=== PATIENT | female | born 1985 | race Caucasian/White ===

== ENCOUNTER 2018-11-17 18:05 | Emergency (ER) | payer MEDICAID, OTHER ==
[~2018-11-17] VITALS: Ht 162.6 cm; Wt 53.1 kg
--- OUTSIDE RECORDS SUMMARY | 2018-11-17 18:11 | XMS REPORT ---
Author Author BRIAN BRIONES Organization [facility] Address [address] [place] [address] Care Team Providers Care Drapery Supervisor Name Role Phone NEYBRIAN GODFREY Unavailable PROBLEMS Unknown Problems ALLERGIES Substance Reaction Event Type Date Status Tramadol HCl rash Drug Allergy Aug, Active Aspirin anaphylaxis Drug Allergy Aug, Active ENCOUNTERS Encounter Location Date Diagnosis [address] [id number] [id number] Aug, Dental caries K02.[address] [id number] [id number] Aug, Dental examination Z01.20 [facility] [id number] [place] [id number] Aug, Abdominal pain, unspecified abdominal location R10.9 [place] [id number] [place] [id number] Mar, Tooth decayed K02.9 and Tooth pain K08.89 IMMUNIZATIONS No Known Immunizations SOCIAL HISTORY Never Assessed REASON FOR VISIT Pain (acute) stomach CRones RN PLAN OF CARE Activity Details Follow Up prn if not improving in clinic or with PCP Reason: VITAL SIGNS Height 64.5 in 2017-08-11 Weight 122.6 lbs 2017-08-11 Temperature 97.8 degrees Fahrenheit 2017-08-11 Heart Rate 103 bpm 2017-08-11 Respiratory Rate 18 2017-08-11 BMI 20.72 kg/m2 2017-08-11 Blood pressure systolic 110 mmHg 2017-08-11 Blood pressure diastolic 58 mmHg 2017-08-11 MEDICATIONS No Known Medications RESULTS Name Result Date Reference Range UA LONG DIP (IN HOUSE) 2017-08-11 Lot # [id number] Exp date 07/11/18 Clarity clear Color yellow Odor no GLU neg KEITH neg KET neg SG 1.005 BLO neg pH 5.5 Protein neg URO 0.2 NIT neg TANIA 1+ Lot # Exp date PROCEDURES Procedure Date Ordered Result Body Site URINALYSIS, AUTO, W/O SCOPE Aug 11, 2017 INSTRUCTIONS MEDICATIONS ADMINISTERED No Known Medications MEDICAL (GENERAL) HISTORY Type Description Date Medical History bipolar disorder Medical History schizophrenia Medical History hepatitis C Surgical History tubal ligation Surgical History section x 3 Surgical History left eye muscles and retina reattached s/p defect Surgical History lasik correction right eye Hospitalization History childbirth
--- OUTSIDE RECORDS SUMMARY | 2018-11-17 18:11 | XMS REPORT ---
Author Author HOLLIE ORTIZ Organization [facility] Address [address] [place] [address] Care Team Providers Care Extruder Operator Helper Name Role Phone HOLLIE ORTIZ Unavailable PROBLEMS Unknown Problems ALLERGIES Substance Reaction Event Type Date Status Tramadol HCl rash Drug Allergy Aug, Active Aspirin anaphylaxis Drug Allergy Aug, Active ENCOUNTERS Encounter Location Date Diagnosis [facility] [address] [facility] [id number] [phone] Aug, Dental caries K02.9 [place] [id number] [facility] [id number] [id number] Aug, Dental examination Z01.20 [facility] [address] [id number] [phone] Aug, Abdominal pain, unspecified abdominal location R10.9 [facility] [address] [id number] [id number] Mar, Tooth decayed K02.9 and Tooth pain K08.89 IMMUNIZATIONS No Known Immunizations SOCIAL HISTORY Never Assessed REASON FOR VISIT te PLAN OF CARE Activity Details Follow Up prn Reason:GOPAL w/ hygiene VITAL SIGNS Height 64.5 in 2017-08-28 Blood pressure systolic 114 mmHg 2017-08-28 Blood pressure diastolic 59 mmHg 2017-08-28 MEDICATIONS Medication Instructions Dosage Frequency Start Date End Date Duration Status Mobic Active Flexeril Active RESULTS No Results PROCEDURES Procedure Date Ordered Result Body Site EXTRAC ERUPTED TOOTH/EXPOSED ROOT Aug 28, 2017 INSTRUCTIONS MEDICATIONS ADMINISTERED No Known Medications MEDICAL (GENERAL) HISTORY Type Description Date Medical History bipolar disorder Medical History schizophrenia Medical History hepatitis C Surgical History tubal ligation Surgical History section x 3 Surgical History left eye muscles and retina reattached s/p defect Surgical History lasik correction right eye Hospitalization History childbirth
--- OUTSIDE RECORDS SUMMARY | 2018-11-17 18:11 | XMS REPORT ---
Author Author HOLLIE ORTIZ Organization [facility] Address [address] [place] [address] Care Team Providers Care Diabetes Trainer Name Role Phone HOLLIE ORTIZ Unavailable PROBLEMS Unknown Problems ALLERGIES Substance Reaction Event Type Date Status Tramadol HCl rash Drug Allergy Aug, Active Aspirin anaphylaxis Drug Allergy Aug, Active ENCOUNTERS Encounter Location Date Diagnosis [facility] [address] [facility] [id number] [phone] Aug, Dental caries K02.[id number] [place] [id number] Aug, Dental examination Z01.20 [facility] [id number] [phone] Aug, Abdominal pain, unspecified abdominal location R10.9 [facility] [id number] [place] [id number] Mar, Tooth decayed K02.9 and Tooth pain K08.89 IMMUNIZATIONS No Known Immunizations SOCIAL HISTORY Never Assessed REASON FOR VISIT HERMILO PLAN OF CARE Activity Details Follow Up at least 1 Week Reason:TE #32 VITAL SIGNS Height 64.5 in 2017-08-21 Blood pressure systolic 97 mmHg 2017-08-21 Blood pressure diastolic 60 mmHg 2017-08-21 MEDICATIONS Medication Instructions Dosage Frequency Start Date End Date Duration Status Clindamycin HCl 150 MG Orally with Probiotic every 8 hrs 2 capsules 8h Aug, Aug, 5 day(s) Active Flexeril Active Mobic Active RESULTS No Results PROCEDURES Procedure Date Ordered Result Body Site LTD ORAL EVALUATION - PROBLEM FOCUS Aug 21, 2017 PANORAMIC FILM SEE ALSO CODE [id number] Aug 21, 2017 INSTRUCTIONS MEDICATIONS ADMINISTERED No Known Medications MEDICAL (GENERAL) HISTORY Type Description Date Medical History bipolar disorder Medical History schizophrenia Medical History hepatitis C Surgical History tubal ligation Surgical History section x 3 Surgical History left eye muscles and retina reattached s/p defect Surgical History lasik correction right eye Hospitalization History childbirth
[2018-11-17 18:33] LABS: BILIRUBIN,URINE NEGATIVE (NEGATIVE); CLARITY,URINE VERY CLOUDY; COLOR,URINE YELLOW; GLUCOSE, URINE (UA) NEGATIVE (NEGATIVE); KETONES,URINE NEGATIVE (NEGATIVE); LEUKOCYTE ESTERASE ,URINE 3+ (NEGATIVE); NITRITE,URINE NEGATIVE (NEGATIVE); PH,URINE 6 (5-9); PROTEIN,URINE 1+ (NEGATIVE); UROBILINOGEN,URINE NORMAL (NORMAL)
[2018-11-17 18:34] LABS: BASOPHILS # (AUTO) 0.1 10^3/uL (0.0-0.1); BASOPHILS % (AUTO) 0 % (0-10); EOSINOPHILS % (AUTO) 0 % (0-10); HEMATOCRIT 42 % (35-52); HEMOGLOBIN 14.4 G/DL (11.5-16.0); LYMPHOCYTES # (AUTO) 3.5 X 10^3 (1.0-4.0); LYMPHOCYTES % (AUTO) 26 % (12-44); MEAN CORPUSCULAR HEMOGLOBIN 33 PG (25-34); MEAN CORPUSCULAR HGB CONC 34 G/DL (32-36); MEAN CORPUSCULAR VOLUME 95 FL (80-99); MEAN PLATELET VOLUME 10.5 FL (7.4-10.4); MONOCYTES % (AUTO) 8 % (0-12); NEUTROPHILS # (AUTO) 8.9 X 10^3 (1.8-7.8); NEUTROPHILS % (AUTO) 66 % (42-75); PLATELET COUNT 218 10^3/uL (130-400); RED CELL DISTRIBUTION WIDTH 13.2 % (10.0-14.5); WHITE BLOOD COUNT 13.5 10^3/uL (4.3-11.0)
[2018-11-17 18:40] LABS: BACTERIA,URINE MODERATE /HPF
--- NOTE | 2018-11-17 18:44 | ED Abdominal Pain ---
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 HX OF KIDNEY STONES. Sepsis Screen: No Definite Risk Source of Information: Patient Exam Limitations: No Limitations History of Present Illness Date Seen by Provider: Nov 17, 2018 Time Seen by Provider: 18:30 Allergies and Home Medications Allergies Coded Allergies: aspirin (Verified Allergy, Unknown, 11/17/18) Past Cgjkjju-Jqnyef-Dlmynr Hx Patient Social History Alcohol Use: Occasionally Uses Recreational Drug Use: Yes Drug of Choice: MARIJUANA Smoking Status: Current Everyday Smoker Type Used: Cigarettes Recent Foreign Travel: No Contact w/Someone Who Travel: No Recent Infectious Disease Expo: No Recent Hopitalizations: No Seasonal Allergies Seasonal Allergies: Yes Past Medical History Section, Eye Surgery Respiratory: No Cardiac: No Neurological: No Last Menstrual Period: Nov 15, 2018 Genitourinary: No Gastrointestinal: No Musculoskeletal: No Endocrine: No HEENT: Yes Cancer: No Psychosocial: Yes Anxiety Integumentary: No Physical Exam Vital Signs Vital Signs - First Documented 11/17/18 18:12 Temp 97.8 Pulse 67 Resp 16 B/P (MAP) 133/79 (97) Pulse Ox 97 O2 Delivery Room Air Capillary Refill : Less Than 3 Seconds Height/Weight/BMI Height: 5'4.00" Weight: 117lbs. oz. 53.168434hf; BMI Method:Stated Progress/Results/Core Measures Results/Orders Lab Results Laboratory Tests Test 11/17/18 18:23 11/17/18 18:28 Range/Units White Blood Count 13.5 H 4.3-11.0 10^3/uL Red Blood Count 4.42 4.35-5.85 10^6/uL Hemoglobin 14.4 11.5-16.0 G/DL Hematocrit 42 35-52 % Mean Corpuscular Volume 95 80-99 FL Mean Corpuscular Hemoglobin 33 25-34 PG Mean Corpuscular Hemoglobin Concent 34 32-36 G/DL Red Cell Distribution Width 13.2 10.0-14.5 % Platelet Count 218 130-400 10^3/uL Mean Platelet Volume 10.5 H 7.4-10.4 FL Neutrophils (%) (Auto) 66 42-75 % Lymphocytes (%) (Auto) 26 12-44 % Monocytes (%) (Auto) 8 0-12 % Eosinophils (%) (Auto) 0 0-10 % Basophils (%) (Auto) 0 0-10 % Neutrophils # (Auto) 8.9 H 1.8-7.8 X 10^3 Lymphocytes # (Auto) 3.5 1.0-4.0 X 10^3 Monocytes # (Auto) 1.0 0.0-1.0 X 10^3 Eosinophils # (Auto) 0.0 0.0-0.3 10^3/uL Basophils # (Auto) 0.1 0.0-0.1 10^3/uL Sodium Level 141 135-145 MMOL/L Potassium Level 3.4 L 3.6-5.0 MMOL/L Chloride Level 107 98-107 MMOL/L Carbon Dioxide Level 24 21-32 MMOL/L Anion Gap 10 5-14 MMOL/L Blood Urea Nitrogen 6 L 7-18 MG/DL Creatinine 0.84 0.60-1.30 MG/DL Estimat Glomerular Filtration Rate > 60 BUN/Creatinine Ratio 7 Glucose Level 108 H 70-105 MG/DL Calcium Level 9.9 8.5-10.1 MG/DL Corrected Calcium 9.7 8.5-10.1 MG/DL Total Bilirubin 0.4 0.1-1.0 MG/DL Aspartate Amino Transf (AST/SGOT) 20 5-34 U/L Alanine Aminotransferase (ALT/SGPT) 20 0-55 U/L Alkaline Phosphatase 54 40-136 U/L Total Protein 6.9 6.4-8.2 GM/DL Albumin 4.3 3.2-4.5 GM/DL Amylase Level 59 25-125 U/L Serum Test, Qualitative NEGATIVE NEGATIVE Urine Color YELLOW Urine Clarity VERY CLOUDY H Urine pH 6 5-9 Urine Specific Mcallister 1.025 H 1.016-1.022 Urine Protein 1+ H NEGATIVE Urine Glucose (UA) NEGATIVE NEGATIVE Urine Ketones NEGATIVE NEGATIVE Urine Nitrite NEGATIVE NEGATIVE Urine Bilirubin NEGATIVE NEGATIVE Urine Urobilinogen NORMAL NORMAL MG/DL Urine Leukocyte Esterase 3+ H NEGATIVE Urine RBC (Auto) 4+ H NEGATIVE Urine RBC 5-10 H /HPF Urine WBC 5-10 H /HPF Urine Squamous Epithelial Cells 10-25 H /HPF Urine Crystals NONE /LPF Urine Bacteria MODERATE H /HPF Urine Casts NONE /LPF Urine Mucus NEGATIVE /LPF Urine Culture Indicated YES My Orders Orders - VIELKA MARMOLEJO Comprehensive Metabolic Panel (11/17/18 18:17) Amylase (11/17/18 18:17) Ua Culture If Indicated (11/17/18 18:17) Hcg,Qualitative Serum (11/17/18 18:17) Saline Lock/Iv-Start (11/17/18 18:17) Cbc With Automated Diff (11/17/18 18:17) Ct Abd/Pelvis Wo(Kidney Stone) (11/17/18 18:17) Abdomen/Kub 1view (11/17/18 18:17) Ns Iv 1000 Ml (Sodium Chloride 0.9%) (11/17/18 18:45) Fentanyl Injection (Sublimaze Injection (11/17/18 18:45) Ondansetron Injection (Zofran Injectio (11/17/18 18:45) Urine Culture (11/17/18 18:28) Fentanyl Injection (Sublimaze Injection (11/17/18 20:00) Medications Given in ED Current Medications Medications Dose Ordered Sig/Brando Route Start Time Stop Time Status Last Admin Dose Admin Fentanyl Citrate 50 mcg ONCE ONCE IVP 11/17/18 18:45 11/17/18 18:46 DC 11/17/18 18:45 50 MCG Fentanyl Citrate 50 mcg ONCE ONCE IVP 11/17/18 20:00 11/17/18 20:01 DC 11/17/18 19:54 50 MCG Ondansetron HCl 4 mg ONCE ONCE IVP 11/17/18 18:45 11/17/18 18:46 DC 11/17/18 18:45 4 MG Vital Signs/I&O 11/17/18 18:12 Temp 97.8 Pulse 67 Resp 16 B/P (MAP) 133/79 (97) Pulse Ox 97 O2 Delivery Room Air Blood Pressure Mean: 97 Departure Impression Primary Impression: Kidney stone Disposition: 01 HOME, SELF-CARE Condition: Stable/Unchanged Departure-Patient Inst. Decision time for Depature: 20:20 Referrals: SHERRY ROWLAND MD (PCP) Primary Care Physician KIERRA JOSE MD Patient Instructions: Kidney Stones (DC) Add. Discharge Instructions: Take medications as directed. Strain all urine and if you should pass the stone take it with you to your appointment with the urologist. Follow-up with Dr. Jose the urologists by calling first thing Monday morning for an appointment time. Return back to the emergency room for worsening symptoms or concerns as needed. All discharge instructions reviewed with patient and/or family. Voiced understanding. Scripts Sulfamethoxazole/Trimethoprim (Bactrim Ds Tablet) 1 Each Tablet 1 EACH PO BID for 7 Days, #14 TAB Prov: VIELKA MARMOLEJO 11/17/18 Hydrocodone Bit/Acetaminophen (Hydrocodone/Acetaminophen 5/325mg Tablet) 1 Tab Tab 1 EACH PO Q4-6HR PRN for PAIN-MODERATE MDD 10, #14 TAB Prov: VIELKA MARMOLEJO 11/17/18 VIELKA MARMOLEJO Nov 17, 2018 18:44
[2018-11-17] MEDS ORDERED: ONDANSETRON 4 MG/2 ML (SDV) Z0FRAN IVP ONE (18:45)
[2018-11-17] MEDS ORDERED: NS IV 1000 ML 1,000 ML IV SCH (18:45)
[2018-11-17] MEDS ORDERED: fentaNYL INJECTION 100 MCG/2 ML AMP IVP ONE ×2 (18:45→20:00)
[2018-11-17 18:51] LABS: ALANINE AMINOTRANSFERASE 20 U/L (0-55); ALBUMIN 4.3 GM/DL (3.2-4.5); ALKALINE PHOSPHATASE 54 U/L (40-136); AMYLASE 59 U/L (25-125); BILIRUBIN,TOTAL 0.4 MG/DL (0.1-1.0); BUN/CREATININE RATIO 7; CALCIUM 9.9 MG/DL (8.5-10.1); CARBON DIOXIDE 24 MMOL/L (21-32); CHLORIDE 107 MMOL/L (98-107); CREATININE SERUM 0.84 MG/DL (0.60-1.30); GFR ESTIMATED > 60; GLUCOSE 108 MG/DL (70-105); POTASSIUM 3.4 MMOL/L (3.6-5.0); SODIUM 141 MMOL/L (135-145); TOTAL PROTEIN 6.9 GM/DL (6.4-8.2)
--- NOTE | 2018-11-17 19:48 | Diagnostic Imaging Report ---
INDICATION: Left-sided flank pain. EXAMINATION: Supine abdomen at 7:22 p.m. COMPARISON: There are no prior studies available for comparison. FINDINGS: There is some gas in both the large and small bowel in a nonspecific fashion. There is no evidence for a bowel obstruction. There is no mass or organomegaly identified; however, there is a 2 mm calcification overlying the left kidney. There are also a few calcifications in the pelvis. These are probably phleboliths. The osseous structures are intact. IMPRESSION: 1. The bowel gas pattern is nonspecific. There is no acute abnormality identified. 2. There is a 2 mm calcification overlying the left kidney. 3. Reportedly, CT of the abdomen and pelvis is pending for further evaluation. Dictated by: Dictated on workstation # [id number]
--- NOTE | 2018-11-17 20:10 | Diagnostic Imaging Report ---
PROCEDURE: CT urinary tract, rule out kidney stone. TECHNIQUE: Multiple contiguous axial images were obtained through the abdomen and pelvis without the use of intravenous contrast. INDICATION: Left flank pain There are no prior CT examinations available for comparison. The plain film examination of the abdomen performed prior to the study did note a 2 mm calcification overlying the left kidney. On this study, there is a 2.5 mm calcification within the left kidney. The left renal pelvis is dilated. The left ureter also appears to be dilated. In the low pelvis near the base of bladder there is a 2.4 mm calcification on the left. I am not certain if this is within the left ureter. If further study is desired, then followup exam intravenous contrast would be recommended. There is no sign of nephrolithiasis or urolithiasis on the right. There is a 2.8 cm rounded area of low density in the left adnexa. This is probably a cyst. If further study is desired, then ultrasound would be recommended. The uterus does not appear to be enlarged. The endometrial lining is thickened but this finding is nonspecific. The appendix was not well-visualized. There are no indirect signs of acute appendicitis. The liver, spleen, pancreas, adrenals, gallbladder, aorta and inferior vena cava show no sign of an acute abnormality. The stomach is partially filled with fluid and consequently difficult to assess. The lung bases are clear. The bone windows show no evidence for a fracture or for a destructive lesion. IMPRESSION: 1. There does appear to be dilatation of the left renal pelvis and left ureter but it is not certain whether the small calculus along the pelvis on the left is within the ureter. Recommendations as above. 2. There is a small nonobstructive calculus within the left kidney. There is no sign of nephrolithiasis or urolithiasis on the right. 3. There is a small cyst associated with the left ovary. If further study is desired, then ultrasound would be recommended. 4. There is no acute abnormality of the abdomen or pelvis noted otherwise. 5. These results were discussed with REBEKA Thomas in the ER. Dictated by: Dictated on workstation # [id number]
[2018-11-17] MEDS ORDERED: ACHD5005 PO (20:23)
[2018-11-17] MEDS ORDERED: SULF1TAB35 PO (20:23)
[2018-11-17] MEDS ORDERED: RX-HYDROCODONE/APAP 5/325 MG #4 TAB PK PO PRN (20:30)
[2018-11-17] MEDS ORDERED: TRIM/SULFAMETH 160/800 (SEPTRA DS) TAB PO ONE (20:30)
[2018-11-17 20:41] VITALS: BP 133/80
== END 2018-11-17 20:42 | disposition home or self-care (01) ==
LOC: ER 18:07
DX: N20.0 Calculus of kidney (principal); F41.9 Anxiety disorder, unspecified; F12.10 Cannabis abuse, uncomplicated; F17.210 Nicotine dependence, cigarettes, uncomplicated; Z98.890 Other specified postprocedural states; Z79.82 Long term (current) use of aspirin
CPT/HCPCS: 36415; 74018; 74176; 80053; 81000; 82150; 84703; 85025; 87077; 87088; 87186